=== PATIENT | male | born 1980 | race Caucasian/White ===

== ENCOUNTER 2021-09-30 05:45 | Emergency (ER) | payer BC ==
[2021-09-30] MEDS ORDERED: Sodium Chloride 0.9% 1,000 ML IV SCH (06:15)
[2021-09-30] MEDS ORDERED: Iopamidol 612 MG/ML 100 ML Bottle IVPUSH ONE (06:30)
[2021-09-30 06:47] LABS: CORONAVIRUS COVID-19 NAA NEGATIVE (NEGATIVE)
[2021-09-30] MEDS ORDERED: Clindamycin Phosphate in D5W 900 MG in Premix Bag 1 BAG IV ONE ×2 (07:58)
== END 2021-09-30 09:22 | disposition home or self-care (01) ==
LOC: JD.ED 05:45
DX: L03.211 Cellulitis of face (principal); K04.7 Periapical abscess without sinus; Z72.0 Tobacco use; Z20.822 Contact with and (suspected) exposure to COVID-19
CPT/HCPCS: 0240U; 36415; 70487; 80048; 85007; 85027; 86140; 96365; 99284; J3490; J7030; Q9967

== ENCOUNTER 2025-07-06 05:35 | Emergency (ER) | payer BC ==
[2025-07-06] MEDS: Ondansetron 4 MG Tab.DIS PO ONE (06:01)
== END 2025-07-06 07:00 | disposition home or self-care (01) ==
LOC: JD.ED 05:35
DX: J02.9 Acute pharyngitis, unspecified (principal); R68.83 Chills (without fever); R11.10 Vomiting, unspecified
CPT/HCPCS: 87428; 87651; 99284; A9270; 99283